=== PATIENT | male | born 1970 | race Caucasian/White ===

== ENCOUNTER → 2016-11-07 | Outpatient (CLI) | payer BC ==
[2016-11-07 16:07] LABS: ADD SCAN DIFF NO
[2016-11-07 16:11] LABS: BASOPHILS % 0.6 % (0.0-2.0); EOSINOPHILS # 0.2 10^3/ul (0.0-0.5); EOSINOPHILS % 2.5 % (0.0-7.0); HEMATOCRIT 42.3 % (42.0-52.0); HEMOGLOBIN 14.6 g/dl (14.0-18.0); LYMPHOCYTES # 2.7 10^3/ul (0.8-2.9); LYMPHOCYTES % 40.9 % (15.0-51.0); MEAN CORPUSCULAR HEMOGLOBIN 31.3 pg (29.0-33.0); MEAN CORPUSCULAR HGB CONC 34.5 g/dl (32.0-37.0); MEAN CORPUSCULAR VOLUME 90.8 fl (82.0-101.0); MEAN PLATELET VOLUME 10.6 fl (7.4-10.4); MONOCYTE # 0.5 10^3/ul (0.3-0.9); MONOCYTES % 8.3 % (0.0-11.0); NEUTROPHIL # 3.1 10^3/ul (1.6-7.5); NEUTROPHILS % 47.4 % (39.0-77.0); PLATELET COUNT 171 10^3/UL (140-415); RED BLOOD COUNT 4.66 10^6/ul (4.70-6.10); WHITE BLOOD COUNT 6.5 10^3/ul (4.8-10.8)
[2016-11-07 16:24] LABS: ALBUMIN 4.5 g/dl (3.3-4.9); CHLORIDE 105 mmol/L (97-110); SODIUM 142 mmol/L (135-144)
[2016-11-07 16:25] LABS: POTASSIUM 3.7 mmol/L (3.5-5.1)
[2016-11-07 16:26] LABS: CREATININE 0.95 mg/dl (0.61-1.24)
[2016-11-07 16:27] LABS: ALANINE AMINOTRANSFERASE 78 IU/L (13-69); ALBUMIN/GLOBULIN RATIO 1.66; ALKALINE PHOSPHATASE 49 IU/L (42-121); ANION GAP 16 (8-16); ASPARTATE AMINO TRANSFERASE 38 IU/L (15-46); BILIRUBIN,INDIRECT 0.2 mg/dl (0-1.1); BILIRUBIN,TOTAL 0.2 mg/dl (0.2-1.3); CARBON DIOXIDE 25 mmol/L (21-31); TOTAL PROTEIN 7.2 g/dl (6.1-8.1)
[2016-11-07 16:28] LABS: BLOOD UREA NITROGEN 18 mg/dl (7-20); CALCIUM 9.2 mg/dl (8.4-10.2); GLUCOSE 124 mg/dl (70-220)
[2016-11-07 16:42] LABS: C-REACTIVE PROTEIN < 0.5 mg/dl (0.0-0.9); TROPONIN-I < 0.012 ng/ml (0.00-0.12)
== END | disposition home or self-care (01) ==
LOC: LAB 15:52
PROVIDERS: ATTEND Internal Medicine
DX: R07.89 Other chest pain (principal)
CPT/HCPCS: 80053; 84484; 85025; 86140

== ENCOUNTER 2017-06-19 10:08 | Emergency (ER) | payer BC ==
[~2017-06-19] VITALS: Ht 172.7 cm; Wt 115.7 kg
[2017-06-19 10:16] VITALS: Ht 172.7 cm; Wt 115.7 kg
[2017-06-19] MEDS ORDERED: SOD CHLORIDE 0.9% 1,000 ML IV STA (10:46)
[2017-06-19] MEDS ORDERED: KETOROLAC 30 MG INJ IV STA (10:46)
[2017-06-19 11:34] LABS: BASOPHILS % 0.6 % (0.0-2.0); EOSINOPHILS # 0.1 10^3/ul (0.0-0.5); EOSINOPHILS % 1.9 % (0.0-7.0); HEMOGLOBIN 15.4 g/dl (14.0-18.0); LYMPHOCYTES # 2.5 10^3/ul (0.8-2.9); MEAN CORPUSCULAR HEMOGLOBIN 30.6 pg (29.0-33.0); MEAN CORPUSCULAR HGB CONC 34.2 g/dl (32.0-37.0); MEAN CORPUSCULAR VOLUME 89.5 fl (82.0-101.0); MEAN PLATELET VOLUME 10.9 fl (7.4-10.4); MONOCYTE # 0.5 10^3/ul (0.3-0.9); MONOCYTES % 8.3 % (0.0-11.0); NEUTROPHIL # 3.1 10^3/ul (1.6-7.5); PLATELET COUNT 166 10^3/UL (140-415); RED BLOOD COUNT 5.03 10^6/ul (4.70-6.10); RED CELL DISTRIBUTION WIDTH 11.9 % (11.5-14.5); WHITE BLOOD COUNT 6.3 10^3/ul (4.8-10.8)
[2017-06-19 11:46] LABS: ADD UMIC NO; UR ASCORBIC ACID NEGATIVE (NEGATIVE); UR BILIRUBIN (Dip) NEGATIVE (NEGATIVE); UR BLOOD (Dip) NEGATIVE (NEGATIVE); UR CLARITY CLEAR (CLEAR); UR COLOR YELLOW (YELLOW); UR GLUCOSE (Dip) NEGATIVE (NEGATIVE); UR KETONES (Dip) NEGATIVE (NEGATIVE); UR LEUKOCYTE ESTERASE (Dip) NEGATIVE Leu/ul (NEGATIVE); UR NITRITE (Dip) NEGATIVE (NEGATIVE); UR TOTAL PROTEIN (Dip) NEGATIVE (NEGATIVE); UR UROBILINOGEN (Dip) NEGATIVE (NEGATIVE)
[2017-06-19 11:53] LABS: ALBUMIN 4.7 g/dl (3.3-4.9); ALBUMIN/GLOBULIN RATIO 1.62; BILIRUBIN,INDIRECT 0.6 mg/dl (0-1.1); BILIRUBIN,TOTAL 0.6 mg/dl (0.2-1.3); CALCIUM 9.4 mg/dl (8.4-10.2); CREATININE 0.93 mg/dl (0.61-1.24); POTASSIUM 3.9 mmol/L (3.5-5.1); TOTAL PROTEIN 7.6 g/dl (6.1-8.1)
--- NOTE | 2017-06-19 12:00 | RADRPT ---
PROCEDURE: CT Abdomen and Pelvis without contrast. CLINICAL INDICATION: Abdominal and pelvic pain. Right lower quadrant pain for 3 days. TECHNIQUE: CT scan of the abdomen and pelvis without contrast was performed. Coronal and sagittal reformatted images were obtained from the axial source images. Images were reviewed on a high-resolu [employer] PACS workstation. Total exam DLP is 1508.79 mGy-cm. CTDIvol is 23.48 mGy. One or more of the following dose reduction techniques were used: Automated exposure control, adjustment of the mA and/ or kV according to patient size, use of iterative reconstruction technique. DICOM images are availab le. COMPARISON: None. FINDINGS: The lung bases are normal. There is no pleural effusion. The liver is normal in size and mildly diffusely decreased in attenuation. There is no focal hepati c lesion. The gallbladder and bile ducts are normal. The spleen is normal in size. There is no focal splenic lesion. Both adrenals are normal with no enlargement or mass. The pancreas is unremarkable with no mass or evidence of pancreatitis. There is a horseshoe kidney with evidence of prior surgery in the region of the left renal pelvis an d the inferior connection between the 2 kidneys with multiple surgical clips in these regions. There is a nonobstructing 0.5 cm calculus in the lower left kidney. There is no other urinary tract calcu sandra. The abdominal aorta is not dilated. There is calcification in the aorta consistent with atherosclero sis. There is no retroperitoneal lymphadenopathy or mass. There is no pelvic lymphadenopathy or mass. The bladder and distal ureters are normal. The appendix is well seen and appears normal. This is a retrocecal appendix. The bowel and mesentery are normal. There is no free fluid or free gas. The osseous structures are unremarkable with no fracture or lytic lesion. IMPRESSION: 1. Fatty metamorphosis of the liver. 2. 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 3. Nonobstructing 0.5 cm calculus in the lower left kidney. 4. Atherosclerosis. 5. Normal appendix. 6. Otherwise unremarkable CT scan of the abdomen and pelvis. RPTAT: QQ .Merrick Muller MD, MD Date Time Electronically viewed and signed by .Merrick Muller MD, on 06/19/2017 12:00 .R/
[2017-06-19] MEDS ORDERED: ACET325T33 PO (12:03)
[2017-06-19] MEDS ORDERED: FAMO-96 PO (12:03)
[2017-06-19 12:29] VITALS: BP 140/87; PULSE 78; RESP 18
--- NOTE | 2017-06-19 13:45 | ERD ---
ER Documentation Chief Complaint Chief Complaint right lower abdominal pain x 3 days HPI 47 yr old male complaining of lower abdominal pain 3 days. It is located in right lower quadrant. Denies vomiting. Denies diarrhea. Last bowel movement was this morning. Has never experienced this pain before. Denies medical problems. Has not taken medications for pain. Has been urinating without difficulty. NKDA. Surgical history: Kidney surgery as a child. ROS All systems reviewed and are negative except as per history of present illness. Medications Home Meds Active Scripts Famotidine* (Pepcid*) 20 Mg Tablet, 20 MG PO BID for 4 Days, #30 TAB Prov:CECILIA MACIEL PA-C 06/19/17 Acetaminophen* (Tylenol*) 325 Mg Tablet, 2 TAB PO Q8 Y for PAIN AND OR ELEVATED TEMP, #20 TAB Prov:CECILIA MACIEL PA-C 06/19/17 Allergies Allergies: Coded Allergies: No Known Allergy (Unverified , 07/11/14) PMhx/Soc History of Surgery: Yes (LEFT KIDNEY SURGERY PT DOES NOT REMEMBER WHY) Anesthesia Reaction: No Hx Neurological Disorder: No Hx Respiratory Disorders: No Hx Cardiac Disorders: Yes (HYPERTENSION) Hx Psychiatric Problems: No Hx Miscellaneous Medical Probl: No Hx Alcohol Use: No Hx Substance Use: No Hx Tobacco Use: No Physical Exam Vitals Vital Signs Date Time Temp Pulse Resp B/P Pulse Ox O2 Delivery O2 Flow Rate FiO2 06/19/17 12:29 78 18 140/87 100 Room Air 06/19/17 10:16 97.9 66 18 153/97 100 Physical Exam Const: [] Head: Atraumatic Eyes: Normal Conjunctiva ENT: Normal External Ears, Nose and Mouth. Neck: Full range of motion..~ No meningismus. Resp: Clear to auscultation bilaterally Cardio: Regular rate and rhythm, no murmurs Abd: Soft, non tender, non distended. Normal bowel sounds Skin: No petechiae or rashes Back: No midline or flank tenderness Ext: No cyanosis, or edema Neur: Awake and alert Psych: Normal Mood and Affect Result Diagram: 06/19/17 1055 06/19/17 1055 Results 24 hrs Laboratory Tests Test 06/19/17 10:55 White Blood Count 6.310^3/ul Red Blood Count 5.0310^6/ul Hemoglobin 15.4g/dl Hematocrit 45.0% Mean Corpuscular Volume 89.5fl Mean Corpuscular Hemoglobin 30.6pg Mean Corpuscular Hemoglobin Concent 34.2g/dl Red Cell Distribution Width 11.9% Platelet Count 19446^3/UL Mean Platelet Volume 10.9fl Neutrophils % 49.0% Lymphocytes % 40.0% Monocytes % 8.3% Eosinophils % 1.9% Basophils % 0.6% Nucleated Red Blood Cells % 0.0/100WBC Neutrophils # 3.110^3/ul Lymphocytes # 2.510^3/ul Monocytes # 0.510^3/ul Eosinophils # 0.110^3/ul Basophils # 0.010^3/ul Nucleated Red Blood Cells # 0.010^3/ul Urine Color YELLOW Urine Clarity CLEAR Urine pH 7.0 Urine Specific [place] 1.020 Urine Ketones NEGATIVEmg/dL Urine Nitrite NEGATIVEmg/dL Urine Bilirubin NEGATIVEmg/dL Urine Urobilinogen NEGATIVEmg/dL Urine Leukocyte Esterase NEGATIVELeu/ul Urine Hemoglobin NEGATIVEmg/dL Urine Glucose NEGATIVEmg/dL Urine Total Protein NEGATIVEmg/dl Sodium Level 142mmol/L Potassium Level 3.9mmol/L Chloride Level 104mmol/L Carbon Dioxide Level 26mmol/L Anion Gap 16 Blood Urea Nitrogen 20mg/dl Creatinine 0.93mg/dl Glucose Level 105mg/dl Calcium Level 9.4mg/dl Total Bilirubin 0.6mg/dl Direct Bilirubin 0.00mg/dl Indirect Bilirubin 0.6mg/dl Aspartate Amino Transf (AST/SGOT) 36IU/L Alanine Aminotransferase (ALT/SGPT) 71IU/L Alkaline Phosphatase 44IU/L Total Protein 7.6g/dl Albumin 4.7g/dl Globulin 2.90g/dl Albumin/Globulin Ratio 1.62 Lipase 68U/L Current Medications Medications (Trade) Dose Ordered Sig/Zulay Route PRN Reason Start Time Stop Time Status Last Admin Dose Admin Sodium Chloride (NS) 1,000 ml @ 1,000 mls/hr Q1H STAT IV 06/19/17 10:46 06/19/17 11:45 DC 06/19/17 11:31 Ketorolac Tromethamine (Toradol) 30 mg ONCE STAT IV 06/19/17 10:46 06/19/17 10:47 DC 06/19/17 11:31 Procedures/MDM DIAGNOSTIC IMAGING REPORT Patient: ANTWAN LEDBETTER : 1970 Age: 47 Sex: M [id number] DOS: 06/19/17 1046 Ordering MD: NELA MACIEL PA-C Location: [facility] Room/Bed: PROCEDURE: CT Abdomen and Pelvis without contrast. CLINICAL INDICATION: Abdominal and pelvic pain. Right lower quadrant pain for 3 days. TECHNIQUE: CT scan of the abdomen and pelvis without contrast was performed. Coronal and sagittal reformatted images were obtained from the axial source images. Images were reviewed on a high-resolution PACS workstation. Total exam DLP is 1508.79 mGy-cm. CTDIvol is 23.48 mGy. One or more of the following dose reduction techniques were used: Automated exposure control, adjustment of the mA and/or kV according to patient size, use of iterative reconstruction technique. DICOM images are available. COMPARISON: None. FINDINGS: The lung bases are normal. There is no pleural effusion. The liver is normal in size and mildly diffusely decreased in attenuation. There is no focal hepatic lesion. The gallbladder and bile ducts are normal. The spleen is normal in size. There is no focal splenic lesion. Both adrenals are normal with no enlargement or mass. The pancreas is unremarkable with no mass or evidence of pancreatitis. 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 There is a nonobstructing 0.5 cm calculus in the lower left kidney. There is no other urinary tract calculus. The abdominal aorta is not dilated. There is calcification in the aorta consistent with atherosclerosis. There is no retroperitoneal lymphadenopathy or mass. There is no pelvic lymphadenopathy or mass. The bladder and distal ureters are normal. The appendix is well seen and appears normal. This is a retrocecal appendix. The bowel and mesentery are normal. There is no free fluid or free gas. The osseous structures are unremarkable with no fracture or lytic lesion. IMPRESSION: 1. Fatty metamorphosis of the liver. 2. 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 3. Nonobstructing 0.5 cm calculus in the lower left kidney. 4. Atherosclerosis. 5. Normal appendix. 6. Otherwise unremarkable CT scan of the abdomen and pelvis. ER Course: 1L NS and toradol given in ED MDM: 37-year-old male complaining of lower abdominal pain. Patient's CT scan is within normal limits and blood work is within normal limits. I have low suspicion for bowel obstruction, choledocholithiasis, cholecystitis, pancreatitis, cholangitis or appendicitis. I have low suspicion for AAA. I have low suspicion for or testicular emergency. Patient's complaint is located to the right lower quadrant does not have penile or testicular pain. Patient will be discharged with pain medication and given instructions to follow -up with PMD within 1-2 days for close evaluation. Patient is told symptoms change or worsen to return immediately to the ER. All questions answered at discharge Departure Diagnosis: Primary Impression: Abdominal pain Condition: Stable Patient Instructions: Abdominal Pain Referrals: CARITO MANZANARES MD (PCP) Additional Instructions: FOLLOW UP WITH YOUR PRIMARY CARE PHYSICIAN TOMORROW.Return to this facility if you are not improving as expected. CECILIA MACIEL PA-C Jun 19, 2017 13:45
== END 2017-06-19 12:31 | disposition home or self-care (01) ==
LOC: FTE 10:08
DX: R10.31 Right lower quadrant pain (principal); I10 Essential (primary) hypertension
CPT/HCPCS: 36415; 74176; 80053; 81003; 83690; 85025; 96374; 99285; J1885; J7030

== ENCOUNTER 2017-09-28 14:07 | Emergency (ER) | END 2017-09-28 17:29 | disposition home or self-care (01) ==

== ENCOUNTER → 2018-08-14 | Outpatient (CLI) | payer BC ==
[~2018-08-14] MED LIST: ACET325T33 PO; FAMO-96 PO; HYDR-4011 PO; IBUP-1542 PO
== END | disposition home or self-care (01) ==
LOC: RAD 09:28
PROVIDERS: ATTEND Internal Medicine
DX: M25.531 Pain in right wrist (principal)

== ENCOUNTER → 2019-01-09 | Outpatient (CLI) | payer BC | END | disposition home or self-care (01) | LOC: LAB 15:42 | PROVIDERS: ATTEND Internal Medicine | DX: R73.03 Prediabetes (principal); D81.9 Combined immunodeficiency, unspecified | CPT/HCPCS: 80053; 83036; 85025; 86735; 86762; 86765 ==